=== PATIENT | male | born 1970 | race Caucasian/White ===

== ENCOUNTER → 2021-11-26 | Outpatient (CLI) | payer OTHER ==
[2021-11-26 14:39] LABS: Basophils # (A) 0.12 X 10*3/uL (0.00-0.10); Basophils % (A) 1.5 %; Eosinophils # (A) 0.09 X 10*3/uL (0.04-0.35); Eosinophils % (A) 1.1 %; HCT 51.3 % (39.6-50.0); HGB 16.2 g/dL (13.0-17.0); Immature Grans, Automated 1.1 %; Lymphocytes # (A) 1.24 X 10*3/uL (0.90-5.00); MCH 29.1 pg (27.0-32.0); MCHC 31.6 g/dL (32.0-37.0); MCV 92.1 fL (80.0-97.0); Mean Platelet Volume 10.5 fL (9.5-12.2); Monocytes # (A) 0.85 X 10*3/uL (0.20-1.00); Monocytes % (A) 10.3 %; NRBC Per 100 WBC 0 /100 WBCS (0.0-0.0); Neutrophils # (A) 5.85 X 10*3/uL (1.80-7.70); Platelet Count 460 X 10*3/uL (140-440); RBC 5.57 X 10*6/uL (4.40-5.60); RDW 12.1 % (11.5-14.5); WBC 8.24 X 10*3/uL (4.50-10.00)
[2021-11-26 16:10] LABS: Erythrocyte Sedimentation Rate 55 mm/Hr (0-20)
== END | disposition home or self-care (01) ==
LOC: LABT 09:13
PROVIDERS: ATTEND Orthopaedic Surgery
DX: M25.562 Pain in left knee (principal); M00.862 Arthritis due to other bacteria, left knee
CPT/HCPCS: 36415; 85025; 85652; 86140; 87070; 87075; 87205